=== PATIENT | female | born 1935 | race Caucasian/White ===

== ENCOUNTER → 2017-06-16 | Outpatient (CLI) | payer OTHER ==
[~2017-06-16] MED LIST: CARDIZEM CD300 MG PO; LIPITOR40 MG PO; MAXZIDE 37.5 M1 EACH PO; OXYCODONE5 MG PO
== END | disposition home or self-care (01) ==
LOC: CDC 14:15
DX: Z01.810 Encounter for preprocedural cardiovascular examination (principal); M67.441 Ganglion, right hand; M79.641 Pain in right hand; I45.10 Unspecified right bundle-branch block; I44.4 Left anterior fascicular block; R94.31 Abnormal electrocardiogram [ECG] [EKG]
CPT/HCPCS: 93000